=== PATIENT | female | born 1950 | race Caucasian/White ===

== ENCOUNTER 2017-11-12 23:30 | Emergency (ER) | payer MEDICARE, BC, OTHER ==
[2017-11-12] MEDS ORDERED: DIAZEPAM 5 MG TABLET PO ONE (23:40)
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
[2017-11-13 00:21] LABS: BASO % 0.1 % (0-6); EOS % 1.3 % (0-6); GRAN % 66.3 % (47-80); HEMATOCRIT 37.9 % (35.0-47.0); HEMOGLOBIN 12.4 gm/dl (11.6-16.0); LYMPH % 25.1 % (16-45); MEAN CELL VOLUME 89.8 fl (81-97); MEAN CORPUSCULAR HEMOGLOBIN 29.4 pg (27-33); MEAN CORPUSCULAR HGB CONC 32.7 g/dl (32-36); MEAN PLATELET VOLUME 9.3 fl (7.4-10.4); MONO % 7.2 % (0-9); PLATELET COUNT 305 K/uL (130-400); RED BLOOD COUNT 4.22 M/uL (3.80-5.40); RED CELL DISTRIBUTION WIDTH 12.3 % (11.5-14.5)
[2017-11-13 00:54] LABS: BLOOD UREA NITROGEN 16 mg/dL (8-23); CREATININE 0.9 mg/dL (0.5-0.9); EST GLOMERULAR FILTRATION RATE > 60 mL/min; TOTAL PROTEIN 7.3 g/dL (6.6-8.7)
[2017-11-13 00:56] LABS: GLUCOSE,RANDOM 114 mg/dL (74-109)
[2017-11-13 00:59] LABS: ALB/GLOB RATIO 1.5 (1.1-1.8); ALBUMIN 4.4 g/dL (4.0-5.0); ALKALINE PHOSPHATASE 52 U/L (35-104); ALT/SGPT 17 U/L (<33); AST/SGOT 21 U/L (10.0-35.0)
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
== END 2017-11-13 02:15 | disposition home or self-care (01) ==
LOC: ER 23:30
DX: S12.691A Other nondisplaced fracture of seventh cervical vertebra, initial encounter for closed fracture (principal); S40.012A Contusion of left shoulder, initial encounter; R07.9 Chest pain, unspecified; V49.50XA Passenger injured in collision with unspecified motor vehicles in traffic accident, initial encounter; I10 Essential (primary) hypertension; Z87.891 Personal history of nicotine dependence
CPT/HCPCS: 99283; 99284; 85025; 80053; 73030; 72125; 71260; Q9967; J3490

== ENCOUNTER 2017-11-13 13:52 | Emergency (ER) | payer MEDICARE, BC, OTHER ==
--- NOTE | 2017-11-13 14:12 | Emergency Department Record ---
History of Present Illness - General Chief Complaint: Recheck - Other Stated Complaint: RECHECK Time Seen by Provider: 11/13/17 14:01 Source: Patient Mode of arrival: Ambulatory Limitations: No limitations - History of Present Illness Initial Comments: 67 yo female returns at our request for a recheck after a radiology over read of the [facility] CT scan. The initial CT of the cervical spine was negative. The over read was she has a C7 articular pillar non displaced fracture. She has minimal to no neck pain. No pain with ROM. No numbness, tingling, weakness, radiating pain. No other new pains today. She has some left upper shoulder pain that was evaluated last night. CT of the chest and shoulder XR where negative. No abdominal pain. No left flank or LUQ pain. No left rib pain. No other new complaints. Over all she states she is doing very well. Complaint: Wound re-check Onset/Timin -: Hour(s) Initial Visit For: Other Returns Today for: Other Symptoms Since Prior Visit: No new symptoms Associated Symptoms: None Treatments Prior to Arrival: Other (None) - Related Data Previous Rx's Medication Instructions Recorded Diazepam [Valium] 5 mg PO Q8H PRN #5 tab 11/13/17 Allergies Allergy/AdvReac Type Severity Reaction Status Date / Time No Known Allergies Allergy PT UNSURE Verified 11/13/17 13:54 OF REACTION Travel Screening - Travel/Exposure Within Last 30 Days Have you traveled within the last 30 days?: No - Travel/Exposure Within Last Year Have you traveled outside the [place] in the last year?: No - Additonal Travel Details Have you been exposed to anyone with a communicable illness?: No - Travel Symptoms Symptom Screening: None Review of Systems Constitutional: Denies: Chills, Fever, Malaise, Weakness Eyes: Denies: Eye discharge ENT: Denies: Congestion, Throat pain Respiratory: Denies: Cough, Dyspnea, Hemoptysis, Stridor, Wheezes Cardiovascular: Denies: Chest pain, Palpitations, Syncope Endocrine: Denies: Fatigue, Polydipsia, Polyuria Gastrointestinal: Denies: Abdominal pain, Diarrhea, Nausea, Vomiting Genitourinary: Denies: Dysuria, Urgency Musculoskeletal: Reports: Arthralgia, Myalgia, Neck pain (minmal). Denies: Joint swelling Skin: Reports: Bruising, Change in color, Rash Neurological: Denies: Abnormal gait, Confusion, Headache, Numbness, Tingling, Tremors, Vertigo, Weakness Psychiatric: Denies: Anxiety Hematological/Lymphatic: Denies: Blood Clots, Easy bleeding, Easy bruising, Swollen glands Past Medical History - SOCIAL HISTORY Smoking Status: Former smoker Alcohol Use: Rare Drug Use: None - RESPIRATORY Hx Respiratory Disorders: No - CARDIOVASCULAR Hx Cardio Disorders: Yes Hx Hypertension: Yes - NEURO Hx Neuro Disorders: No - GI Hx GI Disorders: Yes Hx of Polyps: Yes Comment:: hx of Barretts esophagus - Hx Genitourinary Disorders: No - ENDOCRINE Hx Endocrine Disorders: No - MUSCULOSKELETAL Hx Musculoskeletal Disorders: Yes Hx Osteoporosis: Yes - PSYCH Hx Psych Problems: No - HEMATOLOGY/ONCOLOGY Hx Hematology/Oncology Disorders: No Family Medical History Any Significant Family History?: No Physical Exam - General General Appearance: Alert, Oriented x3, Cooperative, No acute distress Limitations: No limitations - Head Head exam: Normal inspection - Eye Eye exam: Normal appearance, PERRL. negative: Conjunctival injection, Scleral icterus - ENT ENT exam: Normal exam, Mucous membranes moist Ear exam: Normal external inspection Nasal Exam: Normal inspection Mouth exam: Normal external inspection - Neck Neck exam: Normal inspection, Full ROM, Other (She denies pain at this time.). negative: Tenderness - Respiratory Respiratory exam: Normal lung sounds bilaterally. negative: Accessory muscle use, Respiratory distress, Rhonchi, Stridor, Wheezes - Cardiovascular Cardiovascular Exam: Regular rate, Normal rhythm, Normal heart sounds - GI/Abdominal GI/Abdominal exam: Soft - Rectal Rectal exam: Deferred - exam: Deferred - Extremities Extremities exam: Normal inspection, Full ROM, Tenderness - Back Back exam: Reports: Normal inspection, Full ROM. Denies: CVA tenderness (R), CVA tenderness (L), Muscle spasm, Paraspinal tenderness, Rash noted, Tenderness , Vertebral tenderness - Neurological Neurological exam: Alert, Normal gait, Oriented X3. negative: Motor sensory deficit Course Vital Signs 11/13/17 13:57 Temperature 97.7 F Pulse Rate 79 Respiratory 20 Rate Blood Pressure 146/71 Pulse Ox 97 - Reevaluation(s) Reevaluation #1: 11/13/17 14:16 CT was read as C7 articular pillar fracture that is non displaced on the right [facility] was contacted for spine trauma consultation 11/13/17 14:[address] with Dr Walter of neurosurgery. The finding is isolated to the right side, non displaced, and felt to be stable. He stated the patient may be placed in a collar if she has pain. The patient was given the option of a collar. She does not have any pain. She does not want a collar. I spoke at length regarding close follow up with her PCP. She is to be seen immediately if she develops pain, numbness, tingling, or any new concerns as she would need to be in a collar and see Dr Walter for follow up. Disposition Disposition: Discharge Clinical Impression: C7 cervical fracture Qualifiers: Encounter type: initial encounter Fracture type: closed Fracture morphology: unspecified fracture morphology Fracture alignment: nondisplaced Qualified Code( s): S12.601A - Unspecified nondisplaced fracture of seventh cervical vertebra, initial encounter for closed fracture Disposition: Home, Self-Care Condition: (1) Good Instructions: Cervical Fracture (ED) Additional Instructions: You have a right sided C7 articular pillar fracture. The neurosurgeon was contacted while you were in the ER. This fracture is felt to be stable. As long as you have no pain, numbness, tingling, weakness you may follow up with your family doctor (Dr Cabrera). If you develop pain or any of the other symptoms you will need to be placed in a collar and been seen immediately by the spine doctor. Follow up with Dr Cabrera to review the CT scan this week Referrals: SHARYN WALTER [] - Forms: Patient Portal Access Time of Disposition: 14:32 Quality - Quality Measures Quality Measures: N/A - Blood Pressure Screening Does Patient Have Any of the Following: Active Dx of HTN Blood Pressure Classification: Hypertensive Reading Systolic Measurement: 146 Diastolic Measurement: 71 Screening for High Blood Pressure: Patient Exclusion, Hx of HTN [G9744]
== END 2017-11-13 14:39 | disposition home or self-care (01) ==
LOC: ER 13:52
DX: S12.691A Other nondisplaced fracture of seventh cervical vertebra, initial encounter for closed fracture (principal); V49.50XA Passenger injured in collision with unspecified motor vehicles in traffic accident, initial encounter; I10 Essential (primary) hypertension; Z87.891 Personal history of nicotine dependence
CPT/HCPCS: 99283

== ENCOUNTER 2018-08-16 06:01 | Day surgery (SDC) | payer MEDICARE, BC, OTHER ==
[~2018-08-16 06:01] MED LIST: CEFAZOLIN 2 Gram 2 GM/50 ML BAG IVPB ONE; CEFAZOLIN 2 Gram 2 GM/50 ML BAG IVPB SCH; HYDROMORPHONE HCL 2 MG/ML VIAL IVP ONE; RINGERS SOLUTION,LACTATED 1,000 ML IV ONE
[2018-08-16] MEDS ORDERED: PROPOFOL 10 MG/ML VIAL IV ONE (06:02)
[2018-08-16] MEDS ORDERED: LIDOCAINE 2% MDV (20MG/ML) 20ML VIAL IV ONE (06:02)
[2018-08-16] MEDS ORDERED: BACITRACIN 50,000 UNIT VIAL IM ONE (06:02)
[2018-08-16] MEDS ORDERED: MIDAZOLAM HCL 2MG/2ML VIAL IV ONE (06:02)
[2018-08-16] MEDS ORDERED: FENTANYL PF 100MCG/2ML VIAL IV ONE (06:02)
[2018-08-16] MEDS ORDERED: LIDOCAINE 2% MDV (20MG/ML) 20ML VIAL SQ ONE (08:10)
[2018-08-16] MEDS ORDERED: BUPIVACAINE 0.5% (5MG/ML) PF 30ML VIAL SQ ONE (08:10)
[2018-08-16] MEDS ORDERED: RINGERS SOLUTION,LACTATED 200 ML IV ONE (08:23)
--- NOTE | 2018-08-16 18:40 | Operative Note ---
DATE: 08/16/2018. PREOPERATIVE DIAGNOSIS: HAMMERTOE, SECOND DIGIT, LEFT FOOT. POSTOPERATIVE DIAGNOSIS: HAMMERTOE, SECOND DIGIT, LEFT FOOT. PROCEDURE: PARTIAL PHALANGECTOMY, SECOND TOE, LEFT FOOT. SURGEON: Henrry Emmanuel D.P.M. ANESTHESIA: Intravenous sedation with local. HEMOSTASIS: Left ankle tourniquet at 250 mm Hg. ESTIMATED BLOOD LOSS: Minimal. MATERIALS: None. INJECTABLES: A total of 10 mL of 0.5% Marcaine preoperatively, 3.0 mL of 2% Lidocaine intraoperatively. COMPLICATIONS: None. DESCRIPTION OF THE PROCEDURE: The patient was brought into the operating room and placed on the table in the supine position. Time out was taken to confirm correct patient identifiers, correct side, and surgeon for our procedure. When everyone in the room was in agreement, a well-padded tourniquet was placed the length of the left ankle. After adequate intravenous sedation was achieved, 10 mL of 0.5% Marcaine was injected as a proximal second digit block second digit block. The left foot was prepped and draped in the usual manner. The foot was exsanguinated. The tourniquet was inflated to 250 mm Hg. Attention was directed over the dorsal aspect of the second digit. A linear incision was made between the extensor tendon and the neurovascular structures on the medial side of the toe. The patient did react to some painful stimuli, and so another 3.0 mL of 2% Lidocaine was injected, and we were allowed to proceed with surgery at that point. The incision was deepened down to the subcutaneous tissue. We took care to identify when we were retracting, the vascular structures, and cauterized any bleeding vessels. Blunt dissection was then carried down to the level of the joint capsule. This was incised off of the medial aspect of the middle phalanx, and then a sagittal saw was used to resect the medial side of the middle phalanx which was causing the protrusion. All of the roughened edges were then smoothed with a hand rasp. The soft tissues were brought into reapproximation over the area and palpated to make sure enough bone had been removed. Once that was determined, the wound was irrigated with antibiotic saline. The capsule was closed with 3-0 Vicryl, and the skin closure was done with #3-0 nylon. Xeroform and dry sterile dressing were applied to the left foot. The tourniquet was released, and capillary refill returned to all digits on the left foot. The patient tolerated the bone procedure and anesthesia well and went to Recovery with vital signs stable. Job Number: [id number] MTDD
== END 2018-08-16 09:06 | disposition home or self-care (01) ==
LOC: SUR 06:01
PROVIDERS: ATTEND Podiatrist
DX: M20.42 Other hammer toe(s) (acquired), left foot (principal); I10 Essential (primary) hypertension; E78.00 Pure hypercholesterolemia, unspecified; K21.9 Gastro-esophageal reflux disease without esophagitis
CPT/HCPCS: 28285; 01480; J3010; J0690; J7120

== ENCOUNTER 2018-11-19 19:59 | Observation (INO) | payer MEDICARE, BC, OTHER ==
[2018-11-19] MEDS ORDERED: ONDANSETRON HCL IV 4 MG/2 ML VIAL IVP ONE (20:01)
[2018-11-19] MEDS ORDERED: HYOSCYAMINE SULFATE ODT 0.125 MG TAB.SUBL SL ONE (20:09)
--- NOTE | 2018-11-19 20:14 | Emergency Department Record ---
History of Present Illness - General Chief complaint: Nausea, Vomiting, Diarrhea Stated complaint: N/V/D Time Seen by Provider: 11/19/18 20:01 Source: Patient Mode of Arrival: Ambulatory Limitations: No limitations - History of Present Illness Initial comments: 68 yo female presents to ED for evaluation of nausea, vomiting, and loose stools for the past 8-10 days. Patient denies fevers, chills, or recent illness. Patient reports that she saw Dr. Amaral and underwent colonoscopy yesterday for her symptoms. Patient denies history of colitis, diverticulitis, or inflammatory bowel disease previously. Patient has not been taking anything for her symptoms prior to arrival. MD complaint: Abdominal pain, Diarrhea, Nausea, Vomiting Onset/Timin -: Days(s) Location: Diffuse Radiation: None Severity: Moderate Quality: Cramping Consistency: Intermittent Improves with: None Worsens with: None - Related Data Allergies Allergy/AdvReac Type Severity Reaction Status Date / Time No Known Allergies Allergy PT UNSURE Unverified 03/14/18 09:58 OF REACTION Review of Systems Constitutional: Denies: Chills, Fever, Malaise, Night sweats Eyes: Denies: Eye discharge, Eye pain ENT: Denies: Congestion, Ear pain, Epistaxis Respiratory: Denies: Cough, Dyspnea Cardiovascular: Denies: Chest pain, Dyspnea on exertion Endocrine: Denies: Fatigue, Heat or cold intolerance Gastrointestinal: Reports: Abdominal pain, Diarrhea, Nausea, Vomiting Genitourinary: Denies: Incontinence, Retention Musculoskeletal: Denies: Arthralgia, Back pain Skin: Denies: Bruising, Change in color Neurological: Denies: Abnormal gait, Confusion, Headache, Seizure Psychiatric: Denies: Anxiety Hematological/Lymphatic: Denies: Anemia, Blood Clots Past Medical History - SOCIAL HISTORY Smoking Status: Former smoker - RESPIRATORY Hx Respiratory Disorders: Yes Hx Bronchitis: Yes (NOTHING RECENT) Hx Pneumonia: Yes (NOTHING RECENT) - CARDIOVASCULAR Hx Cardio Disorders: Yes Hx Hypertension: Yes (ON MEDS WITH GOOD CONTROL) Comment:: HYPERLIPIDEMIA. WORKS OUT EVERY DAY. - NEURO Hx Neuro Disorders: No - GI Hx GI Disorders: Yes Hx Reflux: Yes Hx of Polyps: Yes (COLON) Comment:: diverticulosis - Hx Genitourinary Disorders: No - ENDOCRINE Hx Endocrine Disorders: No - MUSCULOSKELETAL Hx Musculoskeletal Disorders: Yes Hx Osteoporosis: Yes (POSSIBLY) - PSYCH Hx Psych Problems: No - HEMATOLOGY/ONCOLOGY Hx Hematology/Oncology Disorders: No Family Medical History Family Hx Comment (NOT TO BE USED IN PLACE OF ITEMS BELOW): MOM WITH PE AGE 78 Physical Exam - General General Appearance: Alert, Oriented x3, Cooperative, Mild distress Limitations: No limitations - Head Head exam: Atraumatic, Normocephalic, Normal inspection Head exam detail: negative: Abrasion, Contusion, Villaseñor's sign, General tenderness, Hematoma, Laceration - Eye Eye exam: Normal appearance. negative: Conjunctival injection, Periorbital swelling, Periorbital tenderness, Scleral icterus - ENT Ear exam: negative: Auricular hematoma, Auricular trauma Nasal Exam: negative: Active bleeding, Discharge, Dried blood, Foreign body Mouth exam: negative: Drooling, Laceration, Muffled voice, Tongue elevation - Neck Neck exam: Normal inspection. negative: Meningismus, Tenderness - Respiratory Respiratory exam: Normal lung sounds bilaterally. negative: Rales, Respiratory distress, Rhonchi, Stridor - Cardiovascular Cardiovascular Exam: Regular rate, Normal rhythm, Normal heart sounds - GI/Abdominal GI/Abdominal exam: Soft, Tenderness (Mild TTP LUQ, no rebound, no guarding symptoms on examination.). negative: Rebound, Rigid - Rectal Rectal exam: Deferred - exam: Deferred - Extremities Extremities exam: Normal inspection. negative: Pedal edema, Tenderness - Back Back exam: Denies: CVA tenderness (R), CVA tenderness (L) - Neurological Neurological exam: Alert, Normal gait, Oriented X3 - Psychiatric Psychiatric exam: Normal affect, Normal mood - Skin Skin exam: Normal color. negative: Abrasion Type of lesion: negative: abrasion Course Vital Signs 11/19/18 20:07 Temperature 98.6 F Pulse Rate [ 97 H Pulse Ox Probe] Respiratory 18 Rate Blood Pressure 137/63 [Left Arm] Pulse Ox 94 L - Reevaluation(s) Reevaluation #1: 11/19/18 20:34 Laboratory studies were reviewed and are grossly unremarkable for an acute process except for the following: WBC 13.5 Potassium 2.5 K-lyte 50 meq and 40 meq Potassium ordered IV over 10 hours, Magnesium 2 grams IV ordered as well. Reevaluation #2: 11/19/18 21:14 CT Abdomen and Pelvis: Small hiatal hernia Small umbilical hernia without bowel involvement Fatty infiltration liver Diverticulosis without diverticulitis No free air, no free fluid Reevaluation #3: 11/19/18 21:36 C. Diff negative as well. Will admit for electrolyte replacement and repeat labs in AM. Reevaluation #4: 11/20/18 06:48 Case was discussed with Dr. Davis, will accept admission at this time. Medical Decision Making - Lab Data Result diagrams: 11/19/18 20:10 11/20/18 06:00 Disposition Disposition: Admit Clinical Impression: Nausea vomiting and diarrhea, Hypokalemia Disposition: Still a Patient at [facility] Decision to Admit: Admit from ER Decision to Admit Date: 11/19/18 Decision to Admit Time: 21:36 Condition: (2) Stable Time of Disposition: 21:36 Quality - Quality Measures Quality Measures: N/A - Blood Pressure Screening Does Patient Have Any of the Following: Active Dx of HTN Blood Pressure Classification: Hypertensive Reading Systolic Measurement: 142 Diastolic Measurement: 60 Screening for High Blood Pressure: Patient Exclusion, Hx of HTN [G9744]
[2018-11-19] MEDS ORDERED: 0.9 % SODIUM CHLORIDE 1000ML 1,000 ML IV SCH (20:15)
[2018-11-19 20:18] LABS: ABSOLUTE NEUTROPHIL COUNT 10.65; HEMATOCRIT 39.8 % (35.0-47.0); HEMOGLOBIN 13.5 gm/dl (11.6-16.0); MEAN CELL VOLUME 85.2 fl (81-97); MEAN CORPUSCULAR HEMOGLOBIN 28.9 pg (27-33); MEAN CORPUSCULAR HGB CONC 33.9 g/dl (32-36); MEAN PLATELET VOLUME 8.7 fl (7.4-10.4); PLATELET COUNT 425 K/uL (130-400); RED BLOOD COUNT 4.67 M/uL (3.80-5.40); RED CELL DISTRIBUTION WIDTH 12.4 % (11.5-14.5); WHITE BLOOD COUNT W/O DIFF 13.5 K/uL (4.2-12.2)
[2018-11-19 20:27] LABS: BLOOD UREA NITROGEN 11 mg/dL (8-23); CREATININE 0.8 mg/dL (0.5-0.9); EST GLOMERULAR FILTRATION RATE > 60 mL/min
[2018-11-19 20:28] LABS: LIPASE 41 U/L (13-60); TOTAL PROTEIN 7.3 g/dL (6.6-8.7)
[2018-11-19 20:30] LABS: GLUCOSE,RANDOM 138 mg/dL (74-109)
[2018-11-19 20:32] LABS: ALB/GLOB RATIO 1.4 (1.1-1.8); ALBUMIN 4.2 g/dL (4.0-5.0); ALKALINE PHOSPHATASE 56 U/L (35-104); ALT/SGPT 25 U/L (<33); AST/SGOT 18 U/L (10.0-35.0)
[2018-11-19] MEDS ORDERED: MAGNESIUM SULFATE 16 MEQ in 0.9 % SODIUM CHLORIDE 100ML 100 ML IV ONE (20:33)
[2018-11-19] MEDS ORDERED: SOD CHLOR 0.9% WITH KCL 40MEQ 40 MEQ/1,000 ML IV.SOLN IV ONE (20:33)
[2018-11-19] MEDS ORDERED: POTASSIUM BICARB./CIT AC 25 MEQ EFF.TAB PO STA (20:33)
[2018-11-19 20:52] LABS: CRYPTOSPORIDIUM PARVUM ANTIGEN NOT DETECTED (NOT DETECT)
[2018-11-19 21:35] LABS: MOLECULAR C DIFF TOXIN SCREEN NOT DETECTED (NOT DETECT)
[2018-11-19] MEDS ORDERED: ONDANSETRON HCL IV 4 MG/2 ML VIAL IVP PRN (22:22)
[2018-11-19] MEDS ORDERED: HYOSCYAMINE SULFATE ODT 0.125 MG TAB.SUBL SL PRN (22:22)
[2018-11-19] MEDS: POTASSIUM CHLORIDE/D5-0.9%NACL 20 MEQ/1,000 ML BAG IV ONE (23:08)
[2018-11-20] MEDS: POTASSIUM CHLORIDE/D5-0.9%NACL 20 MEQ/1,000 ML BAG IV ONE (06:04)
[2018-11-20 06:21] LABS: BLOOD UREA NITROGEN 9 mg/dL (8-23); CREATININE 0.7 mg/dL (0.5-0.9); EST GLOMERULAR FILTRATION RATE > 60 mL/min; GLUCOSE,RANDOM 119 mg/dL (74-109)
[2018-11-20] MEDS ORDERED: PANTOPRAZOLE SODIUM 40 MG TABLET PO SCH (07:00)
[2018-11-20] MEDS ORDERED: POTASSIUM CHLORIDE 20 MEQ TABLET PO ONE (08:52)
--- NOTE | 2018-11-20 08:56 | History & Physical ---
History of Present Illness - Date of Service Date of Service for History & Physical: 11/20/18 - History of Present Illness Admitting Diagnosis: Nausea, vomiting, diarrhea. Hypokalemia History of Present Illness: Mrs. Horton is a 68 y/o female with presentation of nausea and vomiting since Wednesday. The patient had am upper EGD/colonoscopy on Wednesday due to progressive GERD and since then she says that she has been nauseated and has vomited several times. She denies abdominal pain, fever or chills. The patient's potassium was 2.5 in admission and she was repleted with 40meq IV and 20meq in saline thereafter. She also notes that she recently started a new blood pressure medication which she thinks is contributing to her nausea. She has medical history of hypertension, GERD and hyperlipidemia. PCP: Dr. Cabrera Travel Screening - Travel/Exposure Within Last 30 Days Have you traveled within the last 30 days?: Yes Location Detail:: [place] Returned November 05 - Travel/Exposure Within Last Year Have you traveled outside the [place] in the last year?: No - Additonal Travel Details Have you been exposed to anyone with a communicable illness?: No - Travel Symptoms Symptom Screening: None Review of Systems Constitutional: Denies: Chills, Fever, Malaise, Night sweats Eyes: Denies: Eye discharge, Eye pain ENT: Denies: Congestion, Ear pain, Epistaxis Respiratory: Denies: Cough, Dyspnea Cardiovascular: Denies: Chest pain, Dyspnea on exertion Endocrine: Denies: Fatigue, Heat or cold intolerance Gastrointestinal: Reports: Abdominal pain, Diarrhea, Nausea, Vomiting Genitourinary: Denies: Incontinence, Retention Musculoskeletal: Denies: Arthralgia, Back pain Skin: Denies: Bruising, Change in color Neurological: Denies: Abnormal gait, Confusion, Headache, Seizure Psychiatric: Denies: Anxiety Hematological/Lymphatic: Denies: Anemia, Blood Clots Past Medical History - SOCIAL HISTORY Smoking Status: Former smoker - RESPIRATORY Hx Respiratory Disorders: Yes Hx Bronchitis: Yes (NOTHING RECENT) Hx Pneumonia: Yes (NOTHING RECENT) - CARDIOVASCULAR Hx Cardio Disorders: Yes Hx Hypertension: Yes (ON MEDS WITH GOOD CONTROL) Comment:: HYPERLIPIDEMIA. WORKS OUT EVERY DAY. - NEURO Hx Neuro Disorders: No - GI Hx GI Disorders: Yes Hx Reflux: Yes Hx of Polyps: Yes (COLON) Comment:: diverticulosis - Hx Genitourinary Disorders: No - ENDOCRINE Hx Endocrine Disorders: No - MUSCULOSKELETAL Hx Musculoskeletal Disorders: Yes Hx Osteoporosis: Yes (POSSIBLY) - PSYCH Hx Psych Problems: No - HEMATOLOGY/ONCOLOGY Hx Hematology/Oncology Disorders: No Family Medical History Family Hx Comment (NOT TO BE USED IN PLACE OF ITEMS BELOW): MOM WITH PE AGE 78 H&P Meds/Allergies - Allergies Allergies: Allergies Allergy/AdvReac Type Severity Reaction Status Date / Time No Known Allergies Allergy PT UNSURE Unverified 03/14/18 09:58 OF REACTION - Active Medications Active Medications: Current Medications Hydrochlorothiazide (Hctz 12.5mg) 12.5 mg PO DAILY [facility] Hyoscyamine (Levsin Odt) 0.25 mg SL Q4H PRN PRN Reason: ABDOMINAL PAIN Last Admin: 11/19/18 23:59 Dose: 0.25 mg Documented by: Sodium Chloride () 1,000 mls @ 0 mls/hr IV .Q0M [facility] Last Infusion: 11/19/18 21:55 Dose: Infused Documented by: Ondansetron HCl (Zofran) 4 mg IVP Q4H PRN PRN Reason: NAUSEA Last Admin: 11/19/18 23:58 Dose: 4 mg Documented by: Pantoprazole Sodium (Protonix) 40 mg PO DAILYAC [facility] Last Admin: 11/20/18 06:03 Dose: 40 mg Documented by: Simvastatin (Zocor) 20 mg PO DAILY [facility] Valsartan (Diovan) 320 mg PO DAILY [facility] Physical Exam - Vital Signs Vital Signs: Vital Signs - Last 24 Hrs Temp Pulse Resp BP Pulse Ox 11/20/18 06:22 97.6 F 86 18 142/60 97 11/19/18 23:01 16 11/19/18 22:30 97.9 F 91 H 18 145/73 96 11/19/18 20:07 98.6 F 97 H 18 137/63 94 L - General General Appearance: Alert, Oriented x3, Cooperative, Mild distress Limitations: No limitations - Head Head exam: Atraumatic, Normocephalic, Normal inspection Head exam detail: negative: Abrasion, Contusion, Villaseñor's sign, General tenderness, Hematoma, Laceration - Eye Eye exam: Normal appearance. negative: Conjunctival injection, Periorbital swelling, Periorbital tenderness, Scleral icterus - ENT Ear exam: negative: Auricular hematoma, Auricular trauma Nasal Exam: negative: Active bleeding, Discharge, Dried blood, Foreign body Mouth exam: negative: Drooling, Laceration, Muffled voice, Tongue elevation - Neck Neck exam: Normal inspection. negative: Meningismus, Tenderness - Respiratory Respiratory exam: Normal lung sounds bilaterally. negative: Rales, Respiratory distress, Rhonchi, Stridor - Cardiovascular Cardiovascular Exam: Regular rate, Normal rhythm, Normal heart sounds Peripheral Pulses: 3+: Radial (R), Radial (L), Dorsalis Pedis (R), Dorsalis Pedis (L) - GI/Abdominal GI/Abdominal exam: Soft, Normal bowel sounds. negative: Rebound, Rigid, Tenderness - Rectal Rectal exam: Deferred - exam: Deferred - Extremities Extremities exam: Normal inspection. negative: Pedal edema, Tenderness - Back Back exam: Denies: CVA tenderness (R), CVA tenderness (L) - Neurological Neurological exam: Alert, Normal gait, Oriented X3 - Psychiatric Psychiatric exam: Normal affect, Normal mood - Skin Skin exam: Normal color. negative: Abrasion Type of lesion: negative: abrasion Results - Labs Result Diagrams: 11/19/18 20:10 11/20/18 06:00 Labs Last 24 Hours: Laboratory Results - last 24 hr 11/19/18 11/19/18 11/19/18 20:10 20:10 20:45 WBC 13.5 H RBC 4.67 Hgb 13.5 Hct 39.8 MCV 85.2 MCH 28.9 MCHC 33.9 RDW 12.4 Plt Count 425 H MPV 8.7 Neutrophils % 80.0 Band Neutrophils % 0.0 Eosinophils % Not Reportable Basophils % Not Reportable Absolute Neutrophils 10.65 Lymphocytes 12.0 L Monocytes 8.0 Basophils 0.0 Eosinophil Count 0.0 Sodium 137 Potassium 2.5 L* Chloride 98 Carbon Dioxide 21.0 L Anion Gap 18.0 H BUN 11 Creatinine 0.8 Estimated GFR > 60 Random Glucose 138 H Calcium 8.9 Total Bilirubin 0.40 AST 18 ALT 25 Alkaline Phosphatase 56 Total Protein 7.3 Albumin 4.2 Globulin 3.1 Albumin/Globulin Ratio 1.4 Lipase 41 Stool for White Cells No wbc's observed C. difficile Ag & Toxin Cryptosporid parvum Ag Giardia lamblia Ag 11/19/18 11/20/18 20:45 06:00 WBC RBC Hgb Hct MCV MCH MCHC RDW Plt Count MPV Neutrophils % Band Neutrophils % Eosinophils % Basophils % Absolute Neutrophils Lymphocytes Monocytes Basophils Eosinophil Count Sodium 140 Potassium 3.3 L Chloride 106 Carbon Dioxide 22.0 Anion Gap 12.0 BUN 9 Creatinine 0.7 Estimated GFR > 60 Random Glucose 119 H Calcium 8.2 L Total Bilirubin AST ALT Alkaline Phosphatase Total Protein Albumin Globulin Albumin/Globulin Ratio Lipase Stool for White Cells C. difficile Ag & Toxin Not detected Cryptosporid parvum Ag Not detected Giardia lamblia Ag Not detected VTE H&P Assessment - Risk for VTE Risk for VTE: No Risk Level: Very Low Risk Assessment Date: 11/20/18 Risk Assessment Time: 09:40 VTE Orders Placed or Will Be Placed: No VTE Reason for No Prophylaxis: Not Indicated (Pt ambulatory and low risk) Plan - Detailed Diagnosis and Plan (1) Nausea vomiting and diarrhea Current Visit: Yes Status: Acute Base Code: R11.2 - NAUSEA WITH VOMITING, UNSPECIFIED; R19.7 - DIARRHEA, UNSPECIFIED Comment: 11/20/18: - N/V resolved, x 1 loose bowel movement this morning. - S/p EGD/Colonoscopy. - IVF: Nacl @ 125mL/hr w/ 20 meq K. Protonix 40mg IV QD - Stool cultures ordered. - Pt tolerated full diet this morning. (2) Hypokalemia Current Visit: Yes Status: Acute Base Code: E87.6 - HYPOKALEMIA Comment: 11/20/18: - K 2.5 on admission. - 3.3 this morning after 40 meq and 20meq continuous in IVF. - An additional 40 meq this morning and recheck potassium in 3 days with PCP. (3) HTN (hypertension) Current Visit: Yes Status: Acute Base Code: I10 - ESSENTIAL (PRIMARY) HYPERTENSION Comment: 11/20/18: - On HCTZ 12.5mg, Valsartan 320mg QD. (4) GERD (gastroesophageal reflux disease) Current Visit: Yes Status: Acute Base Code: K21.9 - GASTRO-ESOPHAGEAL REFLUX DISEASE WITHOUT ESOPHAGITIS Comment: 11/20/18: - On Protonix 40mg IV. - Resume home dose of 40m gOmeprazole at discharge. - Follow up with GI pending EGD/Colonoscopy results. (5) DVT prophylaxis Current Visit: Yes Status: Acute Base Code: Z29.9 - ENCOUNTER FOR PROPHYLA CTIC MEASURES, UNSPECIFIED Comment: 11/20/18: - Low risk. Nursing to encourage ambulation. (6) Full code status Current Visit: Yes Status: Acute Base Code: Z78.9 - OTHER SPECIFIED HEALTH STATUS
[2018-11-20] MEDS ORDERED: SIMVASTATIN 20 MG TABLET PO SCH (10:00)
[2018-11-20] MEDS ORDERED: VALSARTAN 80 MG TAB PO SCH (10:00)
[2018-11-20] MEDS ORDERED: HYDROCHLOROTHIAZIDE 12.5 MG CAPSULE PO SCH (10:00)
--- NOTE | 2018-11-20 10:27 | Discharge Summary ---
Providers Discharge Summary Date: 11/20/18 Date of admission: 11/19/18 22:16 Attending physician: ROSALEE SCHULTZ Primary care physician: Henri Cabrera D.O. Physical Exam - Vital Signs Vital Signs: Vital Signs - Last 24 Hrs Temp Pulse Resp BP Pulse Ox 11/20/18 06:22 97.6 F 86 18 142/60 97 11/19/18 23:01 16 11/19/18 22:30 97.9 F 91 H 18 145/73 96 11/19/18 20:07 98.6 F 97 H 18 137/63 94 L - General General Appearance: Alert, Oriented x3, Cooperative, Mild distress Limitations: No limitations - Head Head exam: Atraumatic, Normocephalic, Normal inspection Head exam detail: negative: Abrasion, Contusion, Villaseñor's sign, General tenderness, Hematoma, Laceration - Eye Eye exam: Normal appearance. negative: Conjunctival injection, Periorbital swelling, Periorbital tenderness, Scleral icterus - ENT Ear exam: negative: Auricular hematoma, Auricular trauma Nasal Exam: negative: Active bleeding, Discharge, Dried blood, Foreign body Mouth exam: negative: Drooling, Laceration, Muffled voice, Tongue elevation - Neck Neck exam: Normal inspection. negative: Meningismus, Tenderness - Respiratory Respiratory exam: Normal lung sounds bilaterally. negative: Rales, Respiratory distress, Rhonchi, Stridor - Cardiovascular Cardiovascular Exam: Regular rate, Normal rhythm, Normal heart sounds Peripheral Pulses: 3+: Radial (R), Radial (L), Dorsalis Pedis (R), Dorsalis Pedis (L) - GI/Abdominal GI/Abdominal exam: Soft, Normal bowel sounds. negative: Rebound, Rigid, Tenderness - Rectal Rectal exam: Deferred - exam: Deferred - Extremities Extremities exam: Normal inspection. negative: Pedal edema, Tenderness - Back Back exam: Denies: CVA tenderness (R), CVA tenderness (L) - Neurological Neurological exam: Alert, Normal gait, Oriented X3 - Psychiatric Psychiatric exam: Normal affect, Normal mood - Skin Skin exam: Normal color. negative: Abrasion Type of lesion: negative: abrasion Hospitalization - Hospitalization Admission Diagnosis: Nausea, vomiting, diarrhea. Hypokalemia - Problem List/Discharge Diagnosis (1) Nausea vomiting and diarrhea Status: Acute Base Code: R11.2 - NAUSEA WITH VOMITING, UNSPECIFIED; R19.7 - DIARRHEA, UNSPECIFIED Comment: 11/20/18: - N/V resolved, x 1 loose bowel movement this morning. - S/p EGD/Colonoscopy. - IVF: Nacl @ 125mL/hr w/ 20 meq K. Protonix 40mg IV QD - Stool cultures ordered. - Pt tolerated full diet this morning. (2) Hypokalemia Status: Acute Base Code: E87.6 - HYPOKALEMIA Comment: 11/20/18: - K 2.5 on admission. - 3.3 this morning after 40 meq and 20meq continuous in IVF. - An additional 40 meq this morning and recheck potassium in 3 days with PCP. (3) HTN (hypertension) Status: Acute Base Code: I10 - ESSENTIAL (PRIMARY) HYPERTENSION Comment: 11/20/18: - On HCTZ 12.5mg, Valsartan 320mg QD. (4) GERD (gastroesophageal reflux disease) Status: Acute Base Code: K21.9 - GASTRO-ESOPHAGEAL REFLUX DISEASE WITHOUT ESOPHAGITIS Comment: 11/20/18: - On Protonix 40mg IV. - Resume home dose of 40m gOmeprazole at discharge. - Follow up with GI pending EGD/Colonoscopy results. (5) DVT prophylaxis Status: Acute Base Code: Z29.9 - ENCOUNTER FOR PROPHYLACTIC MEASURES, UNSPECIFIED Comment: 11/20/18: - Low risk. Nursing to encourage ambulation. (6) Full code status Status: Acute Base Code: Z78.9 - OTHER SPECIFIED HEALTH STATUS - Hospitalization Course Disposition: Home, Self-Care Hospital Course: Mrs. Horton is a 68 y/o female with presentation of nausea and vomiting since Wednesday. The patient had am upper EGD/colonoscopy on Wednesday due to progressive GE RD and since then she says that she has been nauseated and has vomited several times. She denies abdominal pain, fever or chills. The patient's potassium was 2.5 in admission and she was repleted with 40meq IV and 20meq in saline thereafter. She also notes that she recently started a new blood pressure medication which she thinks is contributing to her nausea. She has medical history of hypertension, GERD and hyperlipidemia. The patient was able to tolerate full diet prior to discharge. Discharge examination - Heart: RRR, no M/R, Lungs: CTAB, Abdomen: soft, non-tender, non- distended, + BS. Stooll cultures to be followed up. PCP: Dr. Cabrera Procedures: Imaging and X-Rays 11/19/18 20:01 ABDOMEN/PELVIS W CONTRAST [CT] Stat Abnormal Labs: Abnormal Lab Results 11/19/18 11/19/18 11/20/18 Range/Units 20:10 20:10 06:00 WBC 13.5 H (4.2-12.2) K/uL Plt Count 425 H (130-400) K/uL Lymphocytes 12.0 L (16-45) % Potassium 2.5 L* 3.3 L (3.4-4.5) mmol/L Carbon Dioxide 21.0 L (22-29) mmol/L Anion Gap 18.0 H (7-16) Random Glucose 138 H 119 H (74-109) mg/dL Calcium 8.2 L (8.8-10.2) mg/dL Condition at Discharge: (2) Stable Discharge Medications - Discharge Medications Prescriptions: Ondansetron [Zofran Odt] 4 mg PO Q8H PRN #10 tab.rapdis PRN Reason: Nausea/Vomiting Home Medications: Ambulatory Orders Olmesartan/Hydrochlorothiazide [Benicar Hct 40-12.5 mg Tablet] 1 tab PO QD tab 02/07/16 [Last Taken 11/19/18] Omeprazole 20 mg PO QD cap 02/07/16 [Last Taken 11/19/18] Simvastatin 20 mg PO DAILY tab 02/07/16 [Last Taken 11/19/18] Ondansetron [Zofran Odt] 4 mg PO Q8H PRN #10 tab.rapdis 11/20/18 [Last Taken Unknown] Discharge Plan - Discharge Instructions Diet at Discharge: Regular Diet Instructions: Hypokalemia (DC), Acute Nausea and Vomiting (DC), Acute Diarrhea (GEN) Additional Instructions: Activity: TOLERATED Diet: Regular Diet Consults: [] Follow Up: []FOLLOW UP WITH FAMILY Dressing/Wound Care: (Type) (Change) Additional: [] Medications: Continue home dose of omeprazle. Take Zofran 4mg every 8 hours as needed for nausea/vomiting. Follow up with Dr. Cabrera in 5-7 days of discharge to have your potassium rechecked. Quality Measures - Quality Measures Quality Measures: Advance Directives, Documentation of Current Medications in Medical Record, Elder Maltreatment Screen and Follow-Up Plan, Screening for High Blood Pressure and F/U Documented - Current Medications Quality Measure: Measure #130: Documentation of Current Medications Documentation of Current Medications: <Current Medications Documented/Reviewed> [[id number]] - Blood Pressure Screening Quality Measure: Screening for High Blood Pressure and Follow-Up Documented Does Patient Have Any of the Following: Active Dx of HTN Blood Pressure Classification: Pre-Hypertensive BP Reading Systolic Measurement: 131 Diastolic Measurement: 89 Screening for High Blood Pressure: Patient Exclusion, Hx of HTN [[id number]] - Advance Directives Quality Measure: Measure #47: Care Plan Advance Directives Established: Yes Advance Directives Information Provided To Patient: Already Provided Advance Directives on File: No Living Will: No Power of Director Of Instrumental Music: No Advance Care Planning: <Care Plan/Decision Maker Not Decided; Discussed & Documented> [[id number]] - Elder Abuse Suspicion Index Screening: Elder Abuse Suspicion Index Screening Rely on people for bathing, dressing, shopping, banking, etc: No Prevented from getting food, clothes, medication, etc: No Made to feel shamed or threatened by someone: No Forced to sign papers or use money against will: No Feel afraid, touched in ways not wanted or hurt physically: No Poor eye contact, withdrawn, malnourished, cuts or bruises: No Screening Result: Negative result EASI Reference Information: Luis GANNON, Soheila C, Darrell D, Kayleigh Burt.Development and validation of a tool to assist physicians identification of elder abuse: The Elder Abuse Suspicion Index (EASI ). Journal of Elder Abuse and Neglect, 2008; 20 (3): 276-300. - Elder Maltreatment Screen Quality Measures: Elder Maltreatment Screen and Follow-Up Plan Elder Maltreatment Screen: <Negative, No Follow-Up Plan Required> [[id number]]
== END 2018-11-20 12:50 | disposition home or self-care (01) ==
LOC: ER 19:59 → MEDSURG 22:16
PROVIDERS: ADMIT Internal Medicine; ATTEND Internal Medicine
DX: R11.2 Nausea with vomiting, unspecified (principal); R19.7 Diarrhea, unspecified; I10 Essential (primary) hypertension; E78.5 Hyperlipidemia, unspecified; K21.9 Gastro-esophageal reflux disease without esophagitis; Z87.891 Personal history of nicotine dependence; Z98.890 Other specified postprocedural states
CPT/HCPCS: 83690; 87329; 80048; 80053; 89055; 87427; 87493; 85027; 74177; G0378 ×2; Q9967; J1980; J2405; 96365; 96374; 96375; 99220; 99285; J3480; J7030